=== PATIENT | female | born 1970 | race Two or more races ===

== ENCOUNTER 2023-02-04 22:56 | Emergency (ER) | payer BC, SELFPAY ==
[2023-02-04 22:57] VITALS: BP 150/101; PULSE 77; RESP 16; TEMP 36.3; O2SAT 96; BMI 24.2
--- NOTE | 2023-02-04 23:14 | ED_ITS ---
Discharge Plan Disposition Chief Complaint: Medical Clearance Clinical Impressions Clinical Impression: Medical clearance for incarceration Discharge ED Provider: Naa (CAIN)Juanjo Medical Clearance HPI General Chief complaint: Medical Clearance Stated complaint: medical clearance' Time Seen by Provider: 02/04/23 23:14 Mode of Arrival: Ambulatory Source of Information: Law Enforcement Description of Symptoms (Recalled from ER Triage Doc. by RN): Pt arrived with police for a medical clearance/evaluation. Pt alert and oriented x4, denies pain on arrival to ED History of Present Illness HPI Narrative: no specific c/o MD complaint: medical clearance requested Onset (ago): hour(s) Alleged Intoxication: Yes Traumatic Symptoms: denies traumatic injury Associated Symptoms: denies other symptoms [facility] Disclaimer: The information contained in this section may have been updated after the patient was seen, as this information can be updated by other users. Social History Smoking Status: Never smoker alcohol intake: former current occupational status: employed Travel in the last 8 weeks: None ROS Obtained: Yes All systems reviewed & no additional complaints except as documented Physical Exam General General appearance: alert Head Head exam: normocephalic Eye Eye exam: Present PERRL and EOMI ENT ENT exam: Present mucous membranes moist Neck Neck exam: Present trachea midline Respiratory Respiratory exam: Absent respiratory distress Cardiovascular Cardiovascular exam: Present regular rate Abdominal Exam Abdominal exam: Present soft Extremities Exam Extremities exam: Present full ROM Neurological Exam Neurological exam: Present alert, oriented X3 and CN II-XII intact; Absent motor sensory deficit Psychiatric Psychiatric exam: Present normal affect Skin Skin exam: Absent rash Medical Decision Making Medical Records Medical records reviewed: Yes I reviewed the patient's medical records. Ilia Inquiry Pt receiving controlled substance: No Vital Signs: 02/04/23 22:57 Temperature 97.4 F L Temperature Source Oral Pulse Rate [Left] 77 Respiratory Rate 16 Blood Pressure [Right Arm] 150/101 H Blood Pressure Mean [Right Arm] 117 02 Sat by Pulse Oximetry 96 Oxygen Delivery Method Room Air Lab Data Lab results reviewed: Yes I reviewed the patient's lab results. Medical Decision Narrative: pt with stable exam Critical Care Time Critical Care Time Critical Care Time: No Attestation: On , the high probability of a clinically significant, sudden or life threatening deterioration of the following system(s) required my full and direct attention, intervention and personal management. The time I documented below is in addition to time spent performing reported procedures but includes the following listed in this critical care notation.
[2023-02-04 23:16] VITALS: BP 150/101; PULSE 77; RESP 16; TEMP 36.3; O2SAT 97
== END 2023-02-04 23:26 | disposition home or self-care (01) ==
LOC: ER 23:24
PROVIDERS: Emergency Provider Emergency Medicine
DX: Z02.79 Encounter for issue of other medical certificate (principal)
CPT/HCPCS: 99281; 99282